=== PATIENT | female | born 1950 | race Caucasian/White ===

== ENCOUNTER → 2016-05-02 | Outpatient (CLI) | payer BC ==
[~2016-05-02] MED LIST: ATOR-26 PO; CHOL2000 PO; DILT-119 PO; ESTR0.3T PO; HYDR2TAB48 PO; IBUP-1050 PO; LOSA100T65 PO
[2016-05-02 12:39] LABS: URINE APPEARANCE CLOUDY (CLEAR); URINE BILIRUBIN NEG (NEG); URINE COLOR YELLOW; URINE EPITHELIAL CELL AUTO >30 /lpf (0-5); URINE NITRITE NEG (NEG); UROBILINOGEN NEG (NEG); ZZUR CULT IF INDIC CLEAN CATCH YES
[2016-05-02 12:42] LABS: MANUAL MICROSCOPIC REQUIRED? NO; REVIEW REQ? NO
[2016-05-02 12:51] LABS: CHOLESTEROL/HDL RATIO 3.5
== END | disposition home or self-care (01) ==
LOC: C.LABBFT 08:15
PROVIDERS: ATTEND Internal Medicine
DX: R30.0 Dysuria (principal); E78.5 Hyperlipidemia, unspecified

== ENCOUNTER → 2016-05-06 | Outpatient (CLI) | payer BC | END | disposition home or self-care (01) | LOC: C.LABBFT 09:28 | PROVIDERS: ATTEND Internal Medicine | DX: N39.0 Urinary tract infection, site not specified (principal) ==

== ENCOUNTER → 2016-05-19 | Outpatient (CLI) | payer BC ==
--- NOTE | 2016-05-19 16:38 | MAMMOGRAPHY REPORT ---
BILATERAL DIGITAL SCREENING MAMMOGRAM WITH CAD: 05/19/2016 CLINICAL HISTORY: Routine screening. Patient has no complaints. TECHNIQUE: Bilateral CC, MLO and repeat left cc views were obtained. Current study was also evaluat ed with a Computer Aided Detection (CAD) system. COMPARISON: Comparison is made to exams dated: 05/16/2015 mammogram, 05/08/2014 mammogram, 05/05/2013 mammogram, 05/04/2012 mammogram, 05/01/2011 mammogram, and 04/17/2010 mammogram - [facility]. BREAST COMPOSITION: There are scattered areas of fibroglandular density in both breasts. FINDINGS: There are scattered stable benign-appearing calcifications in both breasts. No suspiciou s mass, architectural distortion or cluster of microcalcifications is seen. IMPRESSION: ACR BI-RADS CATEGORY 2: BENIGN There is no mammographic evidence of malignancy. A 1 year screening mammogram is recommended. The p atient will receive written notification of the results. Approximately 10% of breast cancers are not detected with mammography. A negative mammographic repor t should not delay biopsy if a clinically suggestive mass is present. Eliza Garcias M.D. ay/:05/19/2016 15:55:36 Poultry Packer: Rasheeda PLATT(Artur)(Thai), [facility] letter sent: Normal 1/2 BI-RADS Code: ACR BI-RADS Category 2: Benign
== END | disposition home or self-care (01) ==
LOC: C.MAMM 09:14
PROVIDERS: ATTEND Obstetrics & Gynecology
DX: Z12.31 Encounter for screening mammogram for malignant neoplasm of breast (principal)

== ENCOUNTER → 2016-11-14 | Outpatient (CLI) | payer BC ==
[2016-11-14 12:47] LABS: BASO % 0.2 %; BASO ABS # 0.01 K/uL (0-0.2); COMPLETE YES; EOS % 2.1 %; HEMATOCRIT 45.4 % (37-47); IG% 0.2 %; LYMPH % 30.8 %; LYMPH ABS # 1.89 K/uL (1.2-3.4); MEAN CELL VOLUME 92.8 fL (80-100); MEAN CORPUSCULAR HEMOGLOBIN 30.9 pg (25-34); MEAN CORPUSCULAR HGB CONC 33.3 g/dl (32-36); MEAN PLATELET VOLUME 10.5 fL (7.4-10.4); MONO % 10.9 %; NEUT % 55.8 %; PLATELET COUNT 221 K/uL (130-400); RED BLOOD COUNT 4.89 M/uL (4.2-5.4); WHITE BLOOD COUNT 6.14 K/uL (4.8-10.8)
[2016-11-14 12:59] LABS: BLOOD UREA NITROGEN 13 mg/dl (7-18); BUN/CREATININE RATIO 12.9 (10-20); CARBON DIOXIDE 24 mmol/L (21-32); CHLORIDE 110 mmol/L (98-107); GLUCOSE 96 mg/dl (70-99); POTASSIUM 4.1 mmol/L (3.5-5.1); SODIUM 141 mmol/L (136-145)
== END | disposition home or self-care (01) ==
LOC: C.LABBFT 08:03
PROVIDERS: ATTEND Internal Medicine
DX: E55.9 Vitamin D deficiency, unspecified (principal); I10 Essential (primary) hypertension

== ENCOUNTER → 2017-05-26 | Outpatient (CLI) | payer OTHER ==
[2017-05-26 12:56] LABS: ALT/SGPT 77 U/L (12-78); BLOOD UREA NITROGEN 18 mg/dl (7-18); CALCIUM 8.9 mg/dl (8.5-10.1); CARBON DIOXIDE 26 mmol/L (21-32); CHOLESTEROL 162 mg/dl (0-200); CREATININE 1.14 mg/dl (0.60-1.20); GLUCOSE 95 mg/dl (70-99); POTASSIUM 3.6 mmol/L (3.5-5.1); SODIUM 140 mmol/L (136-145)
[2017-05-26 13:07] LABS: ALKALINE PHOSPHATASE 193 U/L (45-117); AST/SGOT 28 U/L (15-37); LDL CHOLESTEROL CALCULATED 74 mg/dl; TOTAL PROTEIN 7.1 gm/dl (6.4-8.2)
== END | disposition home or self-care (01) ==
LOC: C.LABBFT 08:07
PROVIDERS: ATTEND Internal Medicine
DX: I10 Essential (primary) hypertension (principal); E78.5 Hyperlipidemia, unspecified; E55.9 Vitamin D deficiency, unspecified

== ENCOUNTER → 2017-06-30 | Outpatient (CLI) | payer OTHER | END | disposition home or self-care (01) | LOC: C.MAMM 14:15 | PROVIDERS: ATTEND Internal Medicine | DX: E55.9 Vitamin D deficiency, unspecified (principal); M85.852 Other specified disorders of bone density and structure, left thigh ==

== ENCOUNTER → 2017-07-01 | Outpatient (CLI) | payer OTHER ==
--- NOTE | 2017-07-01 15:25 | MAMMOGRAPHY REPORT ---
BILATERAL DIGITAL SCREENING MAMMOGRAM TOMOSYNTHESIS WITH CAD: 07/01/2017 CLINICAL HISTORY: Routine screening. Patient has no complaints. TECHNIQUE: Breast tomosynthesis in addition to standard 2D mammography was performed. Current study was also evaluated with a Computer Aided Detection (CAD) system. COMPARISON: Comparison is made to exams dated: 05/19/2016 mammogram, 05/16/2015 mammogram, 05/08/2014 ma mmogram, 05/05/2013 mammogram, 05/04/2012 mammogram, and 05/01/2011 mammogram - [facility]. BREAST COMPOSITION: There are scattered areas of fibroglandular density in both breasts. FINDINGS: The parenchymal pattern is unchanged. No developing mass, architectural distortion or clus ter of suspicious microcalcifications is seen. There are benign calcifications in both breasts. IMPRESSION: ACR BI-RADS CATEGORY 2: BENIGN There is no mammographic evidence of malignancy. A 1 year screening mammogram is recommended. The pa tient will receive written notification of the results. Approximately 10% of breast cancers are not detected with mammography. A negative mammographic report should not delay biopsy if a clinically suggestive mass is present. Eliza Garcias M.D. ay/:07/01/2017 12:10:56 Diplomatic Officer: Floridalma PLATT(Artur)(M), [facility] letter sent: Normal 1/2 BI-RADS Code: ACR BI-RADS Category 2: Benign
== END | disposition home or self-care (01) ==
LOC: C.MAMM 10:37
PROVIDERS: ATTEND Obstetrics & Gynecology
DX: Z12.31 Encounter for screening mammogram for malignant neoplasm of breast (principal)

== ENCOUNTER 2018-05-22 12:36 | Inpatient (IN) ==
[2018-05-22] MEDS ORDERED: NITROGLYCERIN SL 0.4 MG/TAB TAB SL PRN (13:02)
[2018-05-22 13:20] LABS: Basophils # (auto) 0.01 K/uL (0-0.2); Basophils % (auto) 0.2 %; Eosinophils # (auto) 0.04 K/uL (0-0.5); Eosinophils % (auto) 0.7 %; Hematocrit (blood only) 43.2 % (37-47); Hemoglobin 14.8 g/dL (12.0-16.0); Immature Granulocytes # (auto) 0.01 K/uL (0.00-0.02); Immature Granulocytes % (auto) 0.2 %; Lymphocytes # (auto) 1.86 K/uL (1.2-3.4); Lymphocytes % (auto) 31.6 %; Mean Corpuscular Hgb Conc 34.3 g/dL (32-36); Mean Corpuscular Volume 90.8 fL (80-100); Mean Platelet Volume 10.5 fL (7.4-10.4); Monocytes # (auto) 0.62 K/uL (0.11-0.59); Monocytes % (auto) 10.5 %; Neutrophils # (auto) 3.34 K/uL (1.4-6.5); Neutrophils % (auto) 56.8 %; Platelet Count 210 K/uL (130-400); RDW Coefficient of Variation 11.9 % (11.5-14.5); RDW Standard Deviation 40.1 fL (36.4-46.3); Red Blood Count 4.76 M/uL (4.2-5.4); White Blood Count 5.88 K/uL (4.8-10.8)
--- NOTE | 2018-05-22 13:26 | XRay Report ---
XR chest 1V portable HISTORY: 67 years-old Female Chest Pain acute atypical chest pain COMPARISON: Chest radiographs 01/27/2016 TECHNIQUE: Portable AP view of the chest. FINDINGS: Cardiac silhouette is upper limits of normal in size. No pneumothorax, large pleural effusion or over t pulmonary edema. Subsegmental left basilar opacities are noted with blunting of the left costophren ic angle. Degenerative changes of the shoulders and spine. IMPRESSION: 1. Subsegmental left basilar opacities suggest atelectasis or pneumonitis. 2. Possible trace left pleural effusion. The above report was generated using voice recognition software. It may contain grammatical, syntax o r spelling errors. Electronically signed by: Jose Tillman M.D. 05/22/2018 1:24 PM
[2018-05-22 13:36] LABS: Alanine Aminotransferase 91 U/L (12-78); Albumin Level 3.9 gm/dl (3.4-5.0); Aspartate Aminotransferase 117 U/L (15-37); BUN Creatinine Ratio 21.5 (10-20); Blood Urea Nitrogen 25 mg/dl (7-18); Calcium 9.1 mg/dl (8.5-10.1); Carbon Dioxide 26 mmol/L (21-32); Chloride 106 mmol/L (98-107); Est GFR (African American) 57.2; Est GFR (Non-African American) 49.4; Glucose 136 mg/dl (70-99); Potassium 3.7 mmol/L (3.5-5.1); Sodium 139 mmol/L (136-145)
[2018-05-22 13:41] LABS: Albumin Globulin Ratio 1.2 (0.9-2); Alkaline Phosphatase 199 U/L (45-117); Bilirubin,Total 0.6 mg/dl (0.2-1); Globulin 3.3 gm/dl (2.5-4.0); Total Protein 7.2 gm/dl (6.4-8.2); Troponin I < 0.015 ng/ml (0-0.045)
[2018-05-22] MEDS ORDERED: HYDROmorphone INJ 0.5 MG/0.5 ML SYR IV STA ×2 (14:27→17:23)
[2018-05-22] MEDS ORDERED: ONDANSETRON INJ 2 MG/ML 2 ML VIAL IV STA ×2 (14:27→17:23)
--- NOTE | 2018-05-22 15:19 | Ultrasound Report ---
US abdomen limited HISTORY: 67 years-old Female RUQ/epigastric pain acute right upper quadrant and epigastric abdominal pain COMPARISON: None available TECHNIQUE: Multiple real-time sonographic images of the abdominal right upper quadrant were obtained assessing grayscale appearance and color flow FINDINGS: Study is limited secondary to patient body habitus and obscuring bowel gas. Pancreas is not well seen . Mildly increased echogenicity of the liver is noted without intrahepatic biliary ductal dilation. Kaitlynn or cholecystectomy. Common bile duct measures 9 mm, likely postsurgical. Imaged right kidney demonstrates multiple benign-appearing cysts, largest which measures up to 2.2 cm . Cortical thinning about the right kidney suggested. IMPRESSION: 1. Limited study secondary to patient body habitus and obscuring bowel gas. 2. Prior cholecystectomy. 3. Possible mild hepatic steatosis. The above report was generated using voice recognition software. It may contain grammatical, syntax o r spelling errors. Electronically signed by: Jose Tillman M.D. 05/22/2018 3:17 PM
--- NOTE | 2018-05-22 15:29 | Emergency Department Note ---
Entered by April Borjas acting as a scribe for Genevieve Szymanski MD History of Present Illness General Chief complaint: Shortness of Breath/Dyspnea Stated complaint: SOB Time Seen by Provider: 05/22/18 12:56 Source: patient History of Present Illness Onset (ago): day(s) (this morning) Location: chest Radiation: other (left shoulder (resolved)) Pain Consistency: + constant Maximum Pain Intensity: 9 Current Pain Intensity: 8 Relieved By: not by medication (Tums or Pepto Bismol) Exacerbated By: + other (breathing in deeply) Associated symptoms: + denies other symptoms (bowel changes) The patient is a 67 year old female who presents to the Emergency Room with complaints of an episode of chest pain around her sternum that started this morning. The patient reports she was bent over cleaning and when she stood up she starting having chest pain. She states she thought it was just gas pain and took Tums/Pepto Bismol but noticed no relief of her symptoms. She rates her chest pain as 8/10 and notes that it is unchanged since its onset. She notes that her left shoulder started hurting but that pain is mostly resolved. She states she ate two eggs and toast for breakfast but has not eaten any lunch. She denies any bowel movement changes. She denies any history of heart problems but notes she is currently taking medication for her cholesterol and HCTZ for leg swelling. The patient reports she has had her gallbladder removed in the past but denies any history of stomach or pancreas issues. She states she is a never smoker. Home Medications Home Medications Medication Instructions Recorded Confirmed Type diltiazem HCl [Cartia XT] 360 mg PO DAILY 05/22/18 05/22/18 History hydrochlorothiazide 25 mg PO DAILY 05/22/18 05/22/18 History losartan 100 mg PO DAILY 05/22/18 05/22/18 History rosuvastatin 20 mg PO HS 05/22/18 05/22/18 History Allergies Allergy/AdvReac Type Severity Reaction Status Date / Time codeine AdvReac Unknown GI UPSET Verified 05/22/18 13:32 oxycodone AdvReac Unknown SICK Verified 05/22/18 13:32 Past Med/Surg History Medical History Vitamin D deficiency (Chronic) Osteopenia (Chronic) Irritable bowel syndrome (Chronic) Hypertension (Chronic) Hyperlipidemia (Chronic) History of shingles (Chronic) Eczema (Chronic) Anxiety (Chronic) Depression (Chronic) Benign paroxysmal positional vertigo (Resolved) Asthma (Chronic) Surgical History History of hysterectomy (Chronic) History of cholecystectomy (Chronic) Family History Other Family history non-contributory Social History Preferred Language: Icelandic marital status: Current Living Situation: Spouse current occupational status: retired Feels Safe at Home: Yes Smoking Status: Never smoker Hx Alcohol Use: No Hx Substance Use: No Review of Systems See HPI for pertinent positives & negatives. and A total of 10 systems reviewed and were otherwise negative Physical Exam Vital Signs Vital Signs - 24 hr 05/22/18 12:45 05/22/18 13:11 05/22/18 13:12 Temperature 36.5 C Temperature Source Oral Sepsis Recent Fever Within 48 Hours No Sepsis Action Taken by Nursing No Action Required Pulse Rate 98 H 99 H Pulse Rate [Apical] Pulse Rhythm Regular Regular Pulse Rhythm [Apical] Pulse Strength Normal Respiratory Rate 36 H 19 Respiratory Effort / Characteristics Non-Labored Spontaneous Respiratory Depth Shallow Normal Respiratory Pattern Tachypnea Regular Blood Pressure [Left Arm] Blood Pressure Mean [Left Arm] Blood Pressure Position Sitting Pulse Oximetry 97 97 93 Oxygen Delivery Method Room Air Room Air Room Air 05/22/18 14:09 Temperature Temperature Source Sepsis Recent Fever Within 48 Hours Sepsis Action Taken by Nursing Pulse Rate Pulse Rate [Apical] 88 Pulse Rhythm Pulse Rhythm [Apical] Regular Pulse Strength Respiratory Rate 17 Respiratory Effort / Characteristics Non-Labored Spontaneous Respiratory Depth Normal Respiratory Pattern Regular Blood Pressure [Left Arm] 148/89 H Blood Pressure Mean [Left Arm] 108 Blood Pressure Position Pulse Oximetry 98 Oxygen Delivery Method Room Air Vital signs reviewed. General: Well-appearing female, obese, in no significant distress. HEENT: No scleral icterus, PERRLA, neck supple. Atraumatic. Cardiovascular: Regular rate and rhythm, no extra sounds. Pulmonary: Clear to auscultation bilaterally, normal work of breathing. Abdomen: Soft, nondistended, positive bowel sounds, tenderness to palpation to epigastric region. No rebound or guarding. Musculoskeletal: Atraumatic, minimal swelling of the bilateral lower extremities. Neurologic: Patient awake alert and oriented x 3 Skin: Warm, dry, no rash Course 1301: The patient was evaluated in room C01B, and a complete history and physical examination were performed. 1425: I updated the patient on her current lab and imaging results. Administered Medications Nitroglycerin (Nitrostat) 0.4 mg SL UD PRN PRN Reason: Chest Pain Stop: 06/21/18 13:01 Last Admin: 05/22/18 13:08 Dose: 0.4 mg Documented by: [id number] Medical Decision Making Differential Diagnosis Differential diagnosis: Etiologies such as cardiac ischemia, aortic dissection, pulmonary embolism, pneumonia, pneumothorax, musculoskeletal, infections, pericarditis, myocarditis, esophageal rupture, gastrointestinal, as well as others were entertained. Medical Records Attestation: I reviewed the patient's medical records. Home Medications Current Medication List: was personally reviewed by me Laboratory Data Attestation: I reviewed the patient's lab results. Result diagrams: 05/22/18 13:03 05/22/18 13:03 Lab Results 05/22/18 05/22/18 Range/Units 13:03 13:03 WBC 5.88 (4.8-10.8) K/uL RBC 4.76 (4.2-5.4) M/uL Hgb 14.8 (12.0-16.0) g/dL Hct 43.2 (37-47) % MCV 90.8 (80-100) fL MCH 31.1 (25-34) pg MCHC 34.3 (32-36) g/dL RDW Std Deviation 40.1 (36.4-46.3) fL RDW Coeff of David 11.9 (11.5-14.5) % Plt Count 210 (130-400) K/uL MPV 10.5 H (7.4-10.4) fL Immature Gran % (Auto) 0.2 % Neut % (Auto) 56.8 % Lymph % (Auto) 31.6 % [place] % (Auto) 10.5 % Eos % (Auto) 0.7 % Baso % (Auto) 0.2 % Immature Gran # (Auto) 0.01 (0.00-0.02) K/uL Neut # (Auto) 3.34 (1.4-6.5) K/uL Lymph # (Auto) 1.86 (1.2-3.4) K/uL [place] # (Auto) 0.62 H (0.11-0.59) K/uL Eos # (Auto) 0.04 (0-0.5) K/uL Baso # (Auto) 0.01 (0-0.2) K/uL Sodium 139 (136-145) mmol/L Potassium 3.7 (3.5-5.1) mmol/L Chloride 106 (98-107) mmol/L Carbon Dioxide 26 (21-32) mmol/L Anion Gap 7.0 (3-11) BUN 25 H (7-18) mg/dl Creatinine 1.16 (0.6-1.2) mg/dl Est Cr Clr Drug Dosing 49.0 ml/min Est GFR ( Amer) 57.2 Est GFR (Non-Af Amer) 49.4 BUN/Creatinine Ratio 21.5 H (10-20) Glucose 136 H (70-99) mg/dl Calcium 9.1 (8.5-10.1) mg/dl Total Bilirubin 0.6 (0.2-1) mg/dl AST 117 H (15-37) U/L ALT 91 H (12-78) U/L Alkaline Phosphatase 199 H (45-117) U/L Troponin I < 0.015 (0-0.045) ng/ml Total Protein 7.2 (6.4-8.2) gm/dl Albumin 3.9 (3.4-5.0) gm/dl Globulin 3.3 (2.5-4.0) gm/dl Albumin/Globulin Ratio 1.2 (0.9-2) Lipase 194 (73-393) U/L Imaging Data Radiologist's Impression: Radiology results as stated below per my review and the radiologist's interpretation: XR chest 1V portable HISTORY: 67 years-old Female Chest Pain acute atypical chest pain COMPARISON: Chest radiographs 01/27/2016 TECHNIQUE: Portable AP view of the chest. FINDINGS: Cardiac silhouette is upper limits of normal in size. No pneumothorax, large pleural effusion or overt pulmonary edema. Subsegmental left basilar opacities are noted with blunting of the left costophrenic angle. Degenerative changes of the shoulders and spine. IMPRESSION: 1. Subsegmental left basilar opacities suggest atelectasis or pneumonitis. 2. Possible trace left pleural effusion. The above report was generated using voice recognition software. It may contain grammatical, syntax or spelling errors. Electronically signed by: Jose Tillman M.D. 05/22/2018 1:24 PM ECG Data Attestation: I personally reviewed and interpreted this ECG as follows: Indication: chest pain Rate (beats per minute): 97 Rhythm: normal sinus Findings: + other (left ventricular hypertrophy, t-wave abnormality in lateral leads, QTC 474); no PAC, no PVC, no ST depression, no ST elevation, no acute ischemic change and no ectopy Blood Pressure Blood Pressure Findings: Elevated blood pressure Blood Pressure Disposition: elevated BP felt to be situational MDM Narrative This patient was evaluated and appeared to be in no significant distress. IV access was obtained and laboratory work was drawn. EKG was obtained and reveals no evidence of acute ischemic change. Chest x-ray reveals a trace left pleural effusion and atelectasis. Laboratory work is reassuring with the exception of some slightly elevated liver enzymes. Lipase and bilirubin are within normal limits. Ultrasound of the right upper quadrant was performed and is technically limited however reveals no obvious ductal obstruction. Given the patient's discomfort and limited ultrasound, CT scan of the abdomen pelvis was ordered. The case was discussed with Dr. Jett at the change of shift, pending CT results. Patient's family was updated on the plan and agree. Impression & Plan Epigastric abdominal pain Discharge Plan Visit Data Chief Complaint: Shortness of Breath/Dyspnea Stated Complaint: SOB ED Provider: Cesario Jett Discharge Problem: Epigastric abdominal pain Forms Stand Alone Forms: My [facility] Prescriptions Prescriptions: No Action diltiazem HCl [Cartia XT] 180 mg capsule,extended release 24hr 360 mg PO DAILY RF: 0 hydrochlorothiazide 25 mg tablet 25 mg PO DAILY RF: 0 losartan 100 mg tablet 100 mg PO DAILY RF: 0 rosuvastatin 20 mg tablet 20 mg PO HS RF: 0 The scribe's documentation has been prepared under my direction and personally reviewed by me in its entirety. I confirm that the note above accurately reflects all work, treatment, procedures, and medical decision making performed by me.
[2018-05-22] MEDS ORDERED: IOVERSOL 100ml IV PRN (15:42)
--- NOTE | 2018-05-22 16:10 | CT Scan Report ---
ABDOMEN AND PELVIS CT WITH IV CONTRAST CT DOSE: 1156.28 mGy.cm HISTORY: Acute epigastric abdominal pain with elevated LFTs epigastric pain, elevated liver enzymes TECHNIQUE: Multiaxial CT images of the abdomen and pelvis were performed following the use of intrave nous contrast. A dose lowering technique was utilized adhering to the principles of ALARA. COMPARISON STUDY: Right upper quadrant abdominal ultrasound of same day. FINDINGS: Mild dependent subsegmental bibasilar atelectasis. No pneumatosis or pneumoperitoneum. Coronary arter ial calcifications are noted. Prior cholecystectomy with pneumobilia suggestive of prior sphincterotomy. Mild dilation of the commo n bile duct is likely postsurgical. No obstructing biliary stones or lesions identified. No evidence of cirrhosis. Spleen, pancreas and adrenal glands appear unremarkable. Mild nonspecific bilateral per inephric stranding. Multiple bilateral renal cysts are noted measuring up to 6.8 cm on the left. Ther e are no renal or ureteral calculi identified. Ureters are unremarkable. Partial distention of the bl adder with mild wall thickening. Prior hysterectomy. No adnexal mass lesions. Aorta and IVC are unrem arkable. No adenopathy. There is no small bowel obstruction or focal bowel wall thickening. No ascites or mesenteric inflamma tion. Mild colonic diverticulosis without acute diverticulitis. Terminal ileum and appendix appear no rmal. Soft tissues are within normal limits. Bones appear to be intact. Multilevel spondylitic spurri ng with facet arthrosis. Perineural root sleeve cysts with bony remodeling changes noted about the sa kelsea measuring up to 4.3 cm. IMPRESSION: 1. Prior cholecystectomy. Mild dilation of the common bile duct is likely postsurgical. Mild associat ed pneumobilia suggests prior sphincterotomy. 2. No bowel obstruction or focal bowel wall thickening. 3. Mild colonic diverticulosis without acute diverticulitis. 4. Additional findings as above. Electronically signed by: Jose Tillman M.D. 05/22/2018 4:09 PM
--- NOTE | 2018-05-22 19:07 | Emergency Department Note ---
ED Visit Note The patient was taken in signout from Dr. Genevieve Szymanski at the change of shift. Please see that note for details. The patient was pending CT imaging. I did reevaluate the patient. The patient had ductal dilatation noted on CT imaging. No evidence of bowel pathology. On examination she was tender in the right upper quadrant. Her LFTs show some concern for an obstructive pattern. The patient notes that the pain was similar to when she had acute cholecystitis in the past and subsequent cholecystectomy. The patient did receive another dose of Zofran and Dilaudid. I did discuss the case with Dr. Dc of gastroenterology. He recommended MRCP and based upon those results that she may need possible ERCP. I did contact the hospitalist service and discussed the case with Dr. Eduardo. He evaluated the patient in the ER and brought her into the hospital for further management. .
[2018-05-22] MEDS ORDERED: ALUMINUM/MAGNESIUM SUSP 30 ML UDC PO PRN (19:39)
[2018-05-22] MEDS ORDERED: HydrALAZINE HCL 20 MG/ML VIAL IV PRN (19:39)
[2018-05-22] MEDS ORDERED: ONDANSETRON INJ 2 MG/ML 2 ML VIAL IV PRN (19:39)
[2018-05-22] MEDS ORDERED: MoRPHine SULFATE 4 MG/ML 1 ML CARP\\VIAL IV PRN (19:39)
[2018-05-22] MEDS ORDERED: MoRPHine SULFATE 4 MG/ML 1 ML CARP\\VIAL ONE (19:44)
--- NOTE | 2018-05-22 21:00 | History & Physical Report ---
Date of Service May 22, 2018 Assessment & Plan (1) Epigastric abdominal pain: Unclear etiology. Pain is similar to her pain prior to her cholecystectomy in 1998. At that time, she had cholecystectomy, bile duct cholangiography, and a sphincterectomy with GI afterward. This, plus the LFT elevation not being in an obstructive pattern make choledocolithasis seem quite unlikely. Also considering gastritis, ulcer, other gastric etiology, or esophagitis as the pain is mostly epigastric and LUQ. She is most tender in the epigastric region and LUQ. ED providers also worried about cardiac nature, but it is a very atypical story, her troponins are all negative, and her EKG is non-ischemic. Would not do inpatient stress testing unless all other etiologies are exhuasted, and patient is still experiencing pain. - PPI IV BID - MRCP - GI consult - NPO @ midnight for possible scope - Pain control (2) Elevated liver function tests: AST/ALT elevated to 117/91 from normal <1 month ago. Unclear if her statin is a new prescription or not (forgot to ask). LFTs do not seem to be in an obstructive pattern, but choledocolithiasis is a possibility. - Trend LFTs - Hold statin - Plan as above (3) Hypertension: BP initially elevated in the ED to 190/90 in the setting of significant pain. - Now lower with pain control - Continue home meds - Work on pain control - Hydralazine PRN (4) Hyperlipidemia: - Holding statin as above (5) DVT prophylaxis: SCDs - Low risk per calculator History of Present Illness Primary Care Provider: Macario Little MD 67yo F w/ hx of cholecystectomy and HTN who presents with epigastric and LUQ pain. Patient reports the pain came on suddenly at approx. noon. She bent over, and when she stood up, she experienced a sharp, 10/10 epigastric pain that radiated up to her left jaw and down to her umbilicus. The pain up to the neck faded quickly, but she reports the pain is still in the epigastric area. She attempted to take Tums and Maalox without relief and came to the ED. She also re ports shortness of breath that accompanied the pain along with wheezing. She denies any fevers, chills, diaphoresis, nausea, vomiting, cough, diarrhea, constipation, or dysuria. She reports this pain is very similar to her prior gallbladder pain when she had a cholecystectomy with Dr. Funes. Allergies Allergy/AdvReac Type Severity Reaction Status Date / Time codeine AdvReac Unknown GI UPSET Verified 05/22/18 13:32 oxycodone AdvReac Unknown SICK Verified 05/22/18 13:32 Home Medications Home Medications Medication Instructions Recorded Confirmed Type diltiazem HCl [Cartia XT] 360 mg PO DAILY 05/22/18 05/22/18 History hydrochlorothiazide 25 mg PO DAILY 05/22/18 05/22/18 History losartan 100 mg PO DAILY 05/22/18 05/22/18 History rosuvastatin 20 mg PO HS 05/22/18 05/22/18 History Past Med/Surg History Medical History Vitamin D deficiency (Chronic) Osteopenia (Chronic) Irritable bowel syndrome (Chronic) Hypertension (Chronic) Hyperlipidemia (Chronic) History of shingles (Chronic) Eczema (Chronic) Anxiety (Chronic) Depression (Chronic) Benign paroxysmal positional vertigo (Resolved) Asthma (Chronic) Surgical History History of hysterectomy (Chronic) History of cholecystectomy (Chronic) Family History Other Family history non-contributory Social History Preferred Language: Vietnamese Communication Ability: Effective Mattress Finisher Required: No Beliefs That Will Affect Care: Voodoo marital status: Current Living Situation: Spouse current occupational status: retired Other Information That Helps Us Care for You: No Feels Safe at Home: Yes Safety Concerns: Feels Safe At This Time Smoking Status: Never smoker Hx Alcohol Use: No Hx Substance Use: No Review of Systems Constitutional: no fever, no chills and no sweats Eyes: no diplopia Ear, Nose, Mouth, Throat: no ear trauma, no nasal discharge and no dental pain Respiratory: no cough, no chest congestion and no dyspnea Cardiovascular: no chest pain, no dyspnea on exertion, no palpitations and no syncope Gastrointestinal: + abdominal pain; no belching, no nausea, no vomiting, no hematemesis, no constipation, no diarrhea/loose stools, no blood in stools and no melena Musculoskeletal: no back pain, no joint pain and no muscle weakness Integumentary: no rash, no skin ulcer and no erythema Neurologic: no generalized weakness, no loss of sensation, no numbness and no paresthesia Psychiatric: no depression and no anxiety Endocrine: no fatigue, no polydipsia and no polyphagia Physical Exam Vital Signs (Past 24 Hours): Last Vital Signs Temp 36.4 C L 05/22/18 16:30 Pulse 102 H 05/22/18 18:51 Resp 18 05/22/18 18:51 BP 154/80 H 05/22/18 18:51 Pulse Ox 94 05/22/18 18:51 Constitutional: WD/WN, vitals as above Eyes: EOM intact bilaterally; no conjunctival abnormality ENMT: external ear and nose normal, oropharynx normal Neck: trachea midline, no thyromegaly normal visual inspection Respiratory: normal respiratory effort, lungs clear to auscultation no respiratory distress Cardiovascular: RRR, no murmur, no edema Gastrointestinal (Abdomen): Inspection/Auscultation: abdomen normal to inspection; abdomen not distended Percussion/Palpation: + abdomen tender (Pr edominantly epigastric region) and abdomen soft; no guarding and abdomen not rigid Musculoskeletal: no cyanosis or clubbing, extremities motor strength 5/5 Skin: no rashes, warm and dry Neurologic: moves all extremities and awake Psychiatric: Orientation: alert, oriented to person and cooperative
--- NOTE | 2018-05-22 21:36 | Magnetic Resonance Report ---
MR MRCP HISTORY: 67 years-old Female Concern for retained stone acute epigastric abdominal pain with prior c holecystectomy. COMPARISON: CT abdomen and pelvis and right upper quadrant abdominal ultrasound studies of same day TECHNIQUE: MRCP without IV contrast was obtained according to institutional protocol. FINDINGS: Study is mildly motion degraded. Renal cysts redemonstrated. Lower chest and solid abdominal organs a ppear unremarkable. Prior cholecystectomy. Pneumobilia is better appreciated on the study of same day . Common bile duct is mildly dilated at 8 mm. Mild intrahepatic biliary ductal dilation. There is sug gestion of a tiny filling defect noted about the distal common bile duct measuring approximately 3 mm . The distal common bile duct is not well visualized. Pancreatic duct appears normal. No evidence of pancreatic divisum. Soft tissues and bony structures appear unremarkable. IMPRESSION: 1. Motion degraded exam. 2. Cholecystectomy with mild intrahepatic and extrahepatic biliary ductal dilation. Pneumobilia is be tter appreciated on CT study of same day. 3. Findings are suspicious for choledocholithiasis about the distal common bile duct. The above report was generated using voice recognition software. It may contain grammatical, syntax o r spelling errors. Electronically signed by: Jose Tillman M.D. 05/22/2018 9:34 PM
[2018-05-22] MEDS: PANTOprazole 40 MG in SYRINGE 0 ML IV SCH (21:42)
[2018-05-23] MEDS: ACETAMINOPHEN 325 MG TAB PO PRN ×2 (04:44→20:28)
[2018-05-23] MEDS ORDERED: TRAMADOL HCL 50 MG TABLET PO PRN (05:37)
[2018-05-23 07:20] LABS: Hematocrit (blood only) 44.4 % (37-47); Hemoglobin 15.1 g/dL (12.0-16.0); Mean Corpuscular Volume 91.2 fL (80-100); Mean Platelet Volume 10.2 fL (7.4-10.4); Platelet Count 229 K/uL (130-400); RDW Coefficient of Variation 12.3 % (11.5-14.5); RDW Standard Deviation 41.1 fL (36.4-46.3); Red Blood Count 4.87 M/uL (4.2-5.4); White Blood Count 11.48 K/uL (4.8-10.8)
[2018-05-23 07:37] LABS: Est GFR (African American) 50.3; Est GFR (Non-African American) 43.4
[2018-05-23 07:38] LABS: Albumin Level 3.9 gm/dl (3.4-5.0); BUN Creatinine Ratio 15.5 (10-20); Calcium 9.2 mg/dl (8.5-10.1); Magnesium 2.2 mg/dl (1.8-2.4)
[2018-05-23 07:40] LABS: Albumin Globulin Ratio 1.1 (0.9-2); Bilirubin,Total 0.8 mg/dl (0.2-1); Globulin 3.4 gm/dl (2.5-4.0); Total Protein 7.3 gm/dl (6.4-8.2)
[2018-05-23] MEDS ORDERED: INDOMETHACIN 50 MG SUPP PR SCH (08:00)
--- NOTE | 2018-05-23 08:14 | History & Physical Report ---
Date of Service May 23, 2018 Assessment & Plan (1) Choledocholithiasis: Patient presented with right upper quadrant discomfort and elevation of her liver associated enzymes. Imaging seems to indicate a stone within the distal common bile duct. Given this we will proceed with ERCP today for removal of gallstone and perhaps biliary stenting if necessary. The patient and I have discussed the risks of the procedure to include bleeding, infection, perforation, pancreatitis and failed cannulation. History of Present Illness Chief Complaint: Abdominal pain Primary Care Provider: Macario Little MD The patient presented to the emergency room yesterday for evaluation of sudden onset abdominal discomfort. The patient is described as right-sided and unremitting. She had initial labs done which showed elevation of her AST and ALT. Follow-up imaging was inconclusive however she did have an MRCP last night which shows evidence of a stone within her distal common bile duct. The patient reports having a prior cholecystectomy over 20 years ago. Her other abdominal surgeries include a hysterectomy. Allergies Allergy/AdvReac Type Severity Reaction Status Date / Time codeine AdvReac Unknown GI UPSET Verified 05/22/18 13:32 oxycodone AdvReac Unknown SICK Verified 05/22/18 13:32 Home Medications Home Medications Medication Instructions Recorded Confirmed Type diltiazem HCl [Cartia XT] 360 mg PO DAILY 05/22/18 05/22/18 History hydrochlorothiazide 25 mg PO DAILY 05/22/18 05/22/18 History losartan 100 mg PO DAILY 05/22/18 05/22/18 History rosuvastatin 20 mg PO HS 05/22/18 05/22/18 History Past Med/Surg History Medical History Vitamin D deficiency (Chronic) Osteopenia (Chronic) Irritable bowel syndrome (Chronic) Hypertension (Chronic) Hyperlipidemia (Chronic) History of shingles (Chronic) Eczema (Chronic) Anxiety (Chronic) Depression (Chronic) Benign paroxysmal positional vertigo (Resolved) Asthma (Chronic) Surgical History History of hysterectomy (Chronic) History of cholecystectomy (Chronic) Family History Other Family history non-contributory Social History Preferred Language: Chinese Communication Ability: Effective Artificial Pearl Maker Required: No Beliefs That Will Affect Care: Sikhism marital status: Current Living Situation: Spouse current occupational status: retired Other Information That Helps Us Care for You: No Feels Safe at Home: Yes Safety Concerns: Feels Safe At This Time Smoking Status: Never smoker Hx Alcohol Use: No Hx Substance Use: No Review of Systems Constitutional: no sweats and no malaise Eyes: no diplopia Ear, Nose, Mouth, Throat: no nasal discharge and no foul smell Respiratory: no change in sputum and no hemoptysis Cardiovascular: no chest pain with activity and no dyspnea at rest Gastrointestinal: + abdominal pain, + bloating and + nausea; no early satiety and no hematemesis Genitourinary (Female): no dysuria Musculoskeletal: + back pain; no neck pain Integumentary: no rash Neurologic: no falls and no paralysis Psychiatric: + change in appetite; no hopelessness and no suicidal ideation Endocrine: no fatigue and no polydipsia Hematologic / Lymphatic: no easy bleeding and no coagulopathy Physical Exam Vital Signs (Past 24 Hours): Last Vital Signs Temp 37.0 C 05/23/18 07:15 Pulse 108 H 05/23/18 07:15 Resp 18 05/23/18 07:15 BP 123/76 05/23/18 07:15 Pulse Ox 92 05/23/18 07:15 Constitutional: well developed and well nourished; not ill appearing Eyes: PERRL, conjunctivae normal, anicteric sclerae Neck: trachea midline, no thyromegaly Respiratory: normal respiratory effort; no retractions Cardiovascular: Rate/Rhythm: regular rhythm; not tachycardic Heart Sounds: no murmur Gastrointestinal (Abdomen): Percussion/Palpation: + abdomen tender and abdomen soft; no guarding and abdomen not rigid Skin: no lesions Results & Data Laboratory Results Laboratory Results - last 24 hr 05/22/18 05/22/18 05/22/18 13:03 13:03 16:02 WBC 5.88 RBC 4.76 Hgb 14.8 Hct 43.2 MCV 90.8 MCH 31.1 MCHC 34.3 RDW Std Deviation 40.1 RDW Coeff of David 11.9 Plt Count 210 MPV 10.5 H Immature Gran % (Auto) 0.2 Neut % (Auto) 56.8 Lymph % (Auto) 31.6 Cocke % (Auto) 10.5 Eos % (Auto) 0.7 Baso % (Auto) 0.2 Immature Gran # (Auto) 0.01 Neut # (Auto) 3.34 Lymph # (Auto) 1.86 Cocke # (Auto) 0.62 H Eos # (Auto) 0.04 Baso # (Auto) 0.01 Sodium 139 Potassium 3.7 Chloride 106 Carbon Dioxide 26 Anion Gap 7.0 BUN 25 H Creatinine 1.16 Est Cr Clr Drug Dosing 49.0 Est GFR ( Amer) 57.2 Est GFR (Non-Af Amer) 49.4 BUN/Creatinine Ratio 21.5 H Glucose 136 H Calcium 9.1 Magnesium Total Bilirubin 0.6 AST 117 H ALT 91 H Alkaline Phosphatase 199 H Troponin I < 0.015 < 0.015 Total Protein 7.2 Albumin 3.9 Globulin 3.3 Albumin/Globulin Ratio 1.2 Lipase 194 05/22/18 05/23/18 05/23/18 22:01 07:00 07:00 WBC 11.48 H RBC 4.87 Hgb 15.1 Hct 44.4 MCV 91.2 MCH 31.0 MCHC 34.0 RDW Std Deviation 41.1 RDW Coeff of David 12.3 Plt Count 229 MPV 10.2 Immature Gran % (Auto) Neut % (Auto) Lymph % (Auto) Cocke % (Auto) Eos % (Auto) Baso % (Auto) Immature Gran # (Auto) Neut # (Auto) Lymph # (Auto) Cocke # (Auto) Eos # (Auto) Baso # (Auto) Sodium 140 Potassium 4.0 Chloride 105 Carbon Dioxide 26 Anion Gap 9.0 BUN 20 H Creatinine 1.29 H Est Cr Clr Drug Dosing 44.0 Est GFR ( Amer) 50.3 Est GFR (Non-Af Amer) 43.4 BUN/Creatinine Ratio 15.5 Glucose 112 H Calcium 9.2 Magnesium 2.2 Total Bilirubin 0.8 AST 380 H ALT 489 H Alkaline Phosphatase 263 H Troponin I < 0.015 Total Protein 7.3 Albumin 3.9 Globulin 3.4 Albumin/Globulin Ratio 1.1 Lipase Diagnostic Findings MR MRCP HISTORY: 67 years-old Female Concern for retained stone acute epigastric abdominal pain with prior cholecystectomy. COMPARISON: CT abdomen and pelvis and right upper quadrant abdominal ultrasound studies of same day TECHNIQUE: MRCP without IV contrast was obtained according to institutional protocol. FINDINGS: Study is mildly motion degraded. Renal cysts redemonstrated. Lower chest and solid abdominal organs appear unremarkable. Prior cholecystectomy. Pneumobilia is better appreciated on the study of same day. Common bile duct is mildly dilated at 8 mm. Mild intrahepatic biliary ductal dilation. There is suggestion of a tiny filling defect noted about the distal common bile duct measuring approximately 3 mm. The distal common bile duct is not well visualized. Pancreatic duct appears normal. No evidence of pancreatic divisum. Soft tissues and bony structures appear unremarkable. IMPRESSION: 1. Motion degraded exam. 2. Cholecystectomy with mild intrahepatic and extrahepatic biliary ductal dilation. Pneumobilia is better appreciated on CT study of same day. 3. Findings are suspicious for choledocholithiasis about the distal common bile duct.
[2018-05-23] MEDS: PANTOprazole 40 MG in SYRINGE 0 ML IV SCH (08:47)
--- NOTE | 2018-05-23 08:55 | Anesthesiology Consultation ---
Date of Service May 23, 2018 Assessment & Plan Chart Review Chart Review: Acceptable Risk for Surgery and Patient NOT seen in Pre Admission Testing Consults Requested none ASA ASA3 Proposed Anesthesia Anesthesia Type: General History Surgery Operation Date: 05/23/18 09:00 Proposed Procedures p Endoscopic Retrograde Cholangiopancreato Agatha Dc Height/Weight Height: 5 ft 3 in Weight: 81.8 kg Allergies Allergy/AdvReac Type Severity Reaction Status Date / Time codeine AdvReac Unknown GI UPSET Verified 05/22/18 13:32 oxycodone AdvReac Unknown SICK Verified 05/22/18 13:32 Medications Home Medications Medication Instructions Recorded Confirmed Last Taken diltiazem HCl [Cartia XT] 360 mg PO DAILY 05/22/18 05/22/18 Unknown hydrochlorothiazide 25 mg PO DAILY 05/22/18 05/22/18 Unknown losartan 100 mg PO DAILY 05/22/18 05/22/18 Unknown rosuvastatin 20 mg PO HS 05/22/18 05/22/18 Unknown Active Medications Generic Name Dose Route Start Last Admin Trade Name Freq PRN Reason Stop Dose Admin Acetaminophen 650 mg 05/22/18 19:39 05/23/18 04:44 Tylenol PO 06/21/18 19:38 650 mg Q4H PRN Administration pain/fever Pantoprazole Sodium 40 mg/ 10 mls @ 5 mls/min 05/22/18 21:00 05/23/18 08:47 Syringe IV 06/21/18 20:59 5 mls/min BID JOSE Administration Beta Matt Beta Matt Taken Within 24 Hours: No (not prescribed) Past Medical History Medical History Vitamin D deficiency (Chronic) Osteopenia (Chronic) Irritable bowel syndrome (Chronic) Hypertension (Chronic) Hyperlipidemia (Chronic) History of shingles (Chronic) Eczema (Chronic) Anxiety (Chronic) Depression (Chronic) Benign paroxysmal positional vertigo (Resolved) Asthma (Chronic) ELLA (acute kidney injury) CAD (coronary artery disease) Past Family History Family History Other Family history non-contributory Past Surgical History Surgical History History of hysterectomy (Chronic) History of cholecystectomy (Chronic) Past Anesthesia History No Hx of Anesthesia Complications and No Family Hx of Anesthesia Complications History of PONV No Motion Sickness Screening History of Motion Sickness: No Social History Smoking Status: Never smoker Do You Dip or Chew Tobacco: No Hx Alcohol Use: No Hx Substance Use: No Exercise / Class Metabolic Activity III < 4 Walking/Shop/Light housework Physical Exam Vital Signs Last Vital Signs Temp 37.0 C 05/23/18 07:15 Pulse 98 H 05/23/18 08:53 Resp 18 05/23/18 07:15 BP 135/79 05/23/18 08:53 Pulse Ox 92 05/23/18 07:15 Testing Electrocardiogram Date: 05/22/18 Findings: + NSR @ (at 97;LVH;LAE) Chest X-Ray Date: 05/22/18 Findings: + atelectasis (left basilar vs pneumonitis) Laboratory Results 05/23/18 07:00 05/23/18 07:00
[2018-05-23] MEDS ORDERED: LOSARTAN POTASSIUM 50 MG TAB PO SCH (09:00)
[2018-05-23] MEDS ORDERED: hydroCHLOROthiazide 25 MG TAB PO SCH (09:00)
[2018-05-23] MEDS: dilTIAZem HCL 180 MG CAPCR PO SCH (09:03)
[2018-05-23] MEDS: SODIUM CHLORIDE 0.9% 1000ML 1,000 ML IV SCH ×2 (09:46→20:28)
[2018-05-23] MEDS ORDERED: PROPOFOL IV EMULSION 10 MG/ML 20 ML VIAL IV ONE (10:39)
[2018-05-23] MEDS ORDERED: GLYCOPYRROLATE 0.2 MG/ML VIAL ONE (10:39)
[2018-05-23] MEDS ORDERED: DEXAMETHASONE SOD INJ 4 MG/ML VIAL ONE (10:39)
[2018-05-23] MEDS ORDERED: ONDANSETRON INJ 2 MG/ML 2 ML VIAL ONE (10:39)
[2018-05-23] MEDS ORDERED: ROCURONIUM BROMIDE 10 MG/ML 5 ML VIAL ONE (10:39)
[2018-05-23] MEDS ORDERED: NEOSTIGMINE METHYLSULFATE 5 MG/5 ML SYR ONE (10:39)
[2018-05-23] MEDS ORDERED: LIDOCAINE HCL 2% 2 ML VIAL/AMP(20MG/ML) INFIL ONE (10:39)
[2018-05-23] MEDS ORDERED: fentaNYL citrate 100 MCG/2 ML VIAL ONE ×2 (10:40→11:54)
[2018-05-23] MEDS ORDERED: MIDAZOLAM HCL 1 MG/ML 2ML VIAL ONE (10:40)
[2018-05-23] MEDS ORDERED: ATROPINE SULFATE 0.1 MG/ML 10ML SYR IV PRN (11:05)
[2018-05-23] MEDS ORDERED: PROMETHAZINE HCL 12.5 MG in SODIUM CHLORIDE 0.9% 50 ML IV PRN (11:05)
[2018-05-23] MEDS ORDERED: FLUMAZENIL 0.1 MG/1 ML 10 ML VIAL IV PRN (11:05)
[2018-05-23] MEDS ORDERED: fentaNYL citrate 100 MCG/2 ML VIAL IV PRN (11:05)
[2018-05-23] MEDS ORDERED: ONDANSETRON INJ 2 MG/ML 2 ML VIAL IV PRN (11:05)
[2018-05-23] MEDS ORDERED: ePHEDrine sulfate 50 MG/ML AMP IV PRN (11:05)
[2018-05-23] MEDS ORDERED: LABETALOL HCL IV 5 MG/ML 20ML IV PRN (11:05)
[2018-05-23] MEDS ORDERED: NALOXONE HCL 0.4 MG/1 ML VIAL/CARP IV PRN (11:05)
[2018-05-23] MEDS ORDERED: ESMOLOL HCL INJ 10 MG/ML 10ML VIAL IV ONE (11:31)
--- NOTE | 2018-05-23 12:33 | Post Operative Brief Note ---
Immediate Post Op Note v1 Date of Surgery May 23, 2018 Pre & Post Diagnosis Operation Date: 05/23/18 09:00 Pre-Op Diagnosis: Choledocholithiasis Post-Op Diagnosis: Choledocholithiasis Procedure Operation Date: 05/23/18 09:00 Actual Procedures p Endoscopic Retrograde Cholangiopancreatography, sphincterotomy, stricture dilatation, biliary stent placement(Not Applicable) - Maurilio Dc Surgeon Maurilio Dc Fitter/Welder none Estimated Blood Loss 0 Findings See Below (Biliary stricture / impacted stone material)
--- NOTE | 2018-05-23 12:49 | GI REPORT ---
Patient Name: Corey Harris Procedure Date: 05/23/2018 9:16 AM Date of : 1950 Admit Type: Inpatient Age: 67 Gender: Female Attending MD: Maurilio Dc DO Procedure: ERCP Providers: Maurilio Dc DO Referring MD: Lary Atkins Md Indications: Abdominal pain of suspected biliary origin, Abnormal MRCP, Elevated liver enzymes Medicines: Monitored Anesthesia Care Complications: No immediate complications. Estimated blood loss: Minimal. Estimated Blood Loss: Estimated blood loss was minimal. Procedure: Pre-Anesthesia Assessment: - Prior to the procedure, a History and Physical was performed, and patient medications, allergies and sensitivities were reviewed. The patient's tolerance of previous anesthesia was reviewed. - The risks and benefits of the procedure and the sedation options and risks were discussed with the patient. All questions were answered and informed consent was obtained. - Patient identification and proposed procedure were verified prior to the procedure by the physician, the nurse and the supervisor mapping. The procedure was verified in the procedure room. - Pre-procedure physical examination revealed no contraindications to sedation. - ASA Grade Assessment: III - A patient with severe systemic disease. - After reviewing the risks and benefits, the patient was deemed in satisfactory condition to undergo the procedure. - The anesthesia plan was to use general anesthesia. - Immediately prior to administration of medications, the patient was re-assessed for adequacy to receive sedatives. - The heart rate, respiratory rate, oxygen saturations, blood pressure, adequacy of pulmonary ventilation, and response to care were monitored throughout the procedure. - The physical status of the patient was re-assessed after the procedure. After obtaining informed consent, the scope was passed under direct vision. Throughout the procedure, the patient's blood pressure, pulse, and oxygen saturations were monitored continuously. The Scope was introduced through the mouth, and advanced to the duodenum and used to inject contrast into the bile duct. The ERCP was accomplished without difficulty. The patient tolerated the procedure well. Findings: A tank washer film of the abdomen was obtained. Surgical clips, consistent with a previous cholecystectomy, were seen in the area of the right upper quadrant of the abdomen. The esophagus was successfully intubated under direct vision without detailed examination of the pharynx, larynx, and associated structures, and upper GI tract. The upper GI tract was grossly normal. The major papilla was located entirely within a diverticulum. The major papilla was congested. The bile duct was deeply cannulated with the short-nosed traction sphincterotome (Omni 35) and 0.035 in Acrobat 2 guidewire on the first attempt (PD not cannulated or injected). Contrast was injected. I personally interpreted the bile duct images. Contrast extended to the entire biliary tree. A cholecystectomy had been performed. The middle third of the main bile duct contained a single mild stenosis. The middle third of the main bile duct contained what appeared to be one stone. Biliary sphincterotomy was made with a monofilament Fusion OMNI sphincterotome using ERBE electrocautery. There was no post-sphincterotomy bleeding. Some stone material came out of the duct after the sphincterotomy. We were unable to pass an extraction balloon into the duct. Therefore dilation of the entire main bile duct with 7 Fr catheter and 8-10 Fr catheter dilator was successful (unable to pass a balloon dilator). We attempted to swepp the biliary tree however the balloon would not pass beyond the suspected stone. One 8.5 Fr by 8 cm biliary stent with a single external flap and a single internal flap was placed 8 cm into the common bile duct. Bile flowed through the stent. The stent was in good position. Indomethacin 100 mg was given via suppository to decrease the risk of post-ERCP pancreatitis (PEP). Impression: - The major papilla was located entirely within a diverticulum. - The major papilla appeared congested. - A single mild biliary stricture was found in the middle third of the main bile duct in the region of an impacted stone. - A biliary sphincterotomy was performed. - One biliary stent was placed into the common bile duct. - Indomethacin given to decrease risk of post-ERCP pancreatitis. Recommendation: - Avoid aspirin and nonsteroidal anti-inflammatory medicines for 5 days. - Clear liquid diet today. - Repeat ERCP in 4 to 6 weeks for retreatment. Maurilio Dc D.O. Maurilio Dc DO 05/23/2018 12:48:57 PM This report has been signed electronically. Note Initiated On: 05/23/2018 9:16 AM Number of Addenda: 0 I attest to the content of the Intraoperative Record and orders documented therein, exceptions below {[id number]}
--- NOTE | 2018-05-23 13:33 | Anesthesiology Progress Note ---
Date of Service May 23, 2018 Anesthesia Post Procedure Vital Signs Vital Signs: Temp Pulse Pulse Pulse Resp BP BP 05/23/18 13:10 36.6 C 77 20 05/23/18 13:00 80 20 05/23/18 12:50 77 18 05/23/18 12:42 36.3 C L 86 18 05/23/18 08:53 98 H 135/79 05/23/18 07:15 37.0 C 108 H 18 05/22/18 23:07 37.3 C 108 H 18 135/85 05/22/18 18:51 102 H 18 154/80 H 05/22/18 18:30 105 H 22 05/22/18 18:00 98 H 16 05/22/18 17:35 110 H 16 05/22/18 17:34 108 H 18 182/89 H 05/22/18 17:33 113 H 15 182/89 H 05/22/18 16:45 156/88 H 05/22/18 16:30 36.4 C L 89 18 156/88 H 05/22/18 14:49 101 H 25 H 138/71 05/22/18 14:09 83 88 18 148/89 H 148/89 H BP Pulse Ox 05/23/18 13:10 142/83 H 96 05/23/18 13:00 140/78 98 05/23/18 12:50 125/88 94 05/23/18 12:42 127/72 97 05/23/18 08:53 05/23/18 07:15 123/76 92 05/22/18 23:07 90 05/22/18 18:51 94 05/22/18 18:30 05/22/18 18:00 05/22/18 17:35 05/22/18 17:34 98 05/22/18 17:33 05/22/18 16:45 96 05/22/18 16:30 98 05/22/18 14:49 05/22/18 14:09 96 Pain Intensity Chest: Pain Intensity: 4 Left Posterior Shoulder: Pain Intensity: 6 Notes Mental Status: alert / awake / arousable Patient Amnestic to Procedure: Yes Nausea / Vomiting: adequately controlled Pain: adequately controlled Airway Patency, RR, SpO2: stable & adequate BP & HR: stable & adequate Hydration State: stable & adequate Anesthetic Complications: no major complications apparent
--- NOTE | 2018-05-23 14:41 | Fluoroscopy Report ---
[place] ERCP biliary ductal CLINICAL HISTORY: 67 years-old Female presenting with ERCP. TECHNIQUE: Fluoroscopy was provided for endoscopic retrograde cholangiopancreatography. 9 fluoroscopi c image(s) recorded. COMPARISON: MRCP from the previous day. FINDINGS: Procedure: An endoscope projects over the descending duodenum. A microcatheter was inserted into the bile ducts, and potential filling defect in the common duct. Cholecystectomy clips noted. Nondistende d cystic duct remnant. A balloon was used to clear the common duct. The common duct was opacified wit h contrast. Peritoneal spillage: No evidence of peritoneal spillage of contrast. Extrahepatic bile ducts: The common bile duct is normal in course and caliber. Potential filling defe cts seen within the common bile duct. Contrast did not extend into the small bowel. Intrahepatic bile ducts: There is no intrahepatic bile duct dilatation. Fluoroscopy dosage (mGy): 71.27. Fluoroscopy time: 250.5 seconds. Number or time of fluoroscopic spot images: 0. IMPRESSION: Suspected choledocholithiasis with balloon clearance on ERCP. Electronically signed by: Vinh Ashraf M.D. 05/23/2018 2:39 PM
--- NOTE | 2018-05-23 15:28 | Hospitalist Progress Note ---
Date of Service May 23, 2018 Assessment & Plan (1) Epigastric abdominal pain: Patient presents with epigastric abdominal pain, LFTs specifically AST and ALT are much more elevated in the day after admission, total bilirubin remains normal. Right upper quadrant ultrasound with CBD [address] abdomen/pelvis without significant abnormality MRCP shows a possible 3 mm CBD stone distally. ERCP on 05/23 performed by GI and showed a stone in the middle portion of the CBD-sphincterotomy was performed and a biliary stent was placed with partial removal of stone and bile was passing through at the end -Cardiac etiology ruled out with negative troponin x3 and no evidence of ischemi a on ECG -Clear liquids diet for now -Avoid NSAIDs and aspirin-containing products for the next 5 days and sphincterotomy -Follow LFTs, lipase in the morning -Was given rectal indomethacin to prevent post ERCP pancreatitis but will monitor for this -Needs repeat ERCP for repeat treatment in 4-6 weeks and likely removal of biliary stent at that time -Appreciate GI consultation -Pain control and antiemetics as needed -Continue IV fluids but decrease to 75 mls per hour -Can DC PPI as no evidence of gastritis or PUD present on EGD (2) Elevated liver function tests: AST/ALT elevated to again today to AST 380, ALT 49, T bili remains normal at 0.8 LFTs were normal <1 month ago. Has been on a statin for at least 6 months Secondary to choledocholithiasis - Trend LFTs - Hold statin - Plan as above (3) Hypertension: BP initially elevated in the ED to 190/90 in the setting of significant pain. Now much improved after pain control -Hold HCTZ and losartan for mild increase in creatinine and poor p.o. intake at this time -Continue diltiazem 360 mg once daily (4) Hyperlipidemia: - Holding statin as above (5) DVT prophylaxis: SCDs - Low risk per calculator, avoid anticoagulation at this time due to the recent sphincterotomy Disposition-remain on medical floor, possibly discharged home tomorrow if tolerating regular diet and no evidence of acute pancreatitis Subjective Patient feeling much better now. She is a little drowsy from anesthesia from her ERCP she had this morning with biliary stent and sphincterotomy performed. She denies any abdominal pain. Last bowel movement 2 days ago. Denies nausea and tolerated a small amount of clear liquids for lunch. Reports she was recently started on hydrochlorothiazide 2 weeks ago for ankle swelling and questions if this caused her biliary stone? Denies chest pain or shortness of breath. Review of Systems All systems reviewed & are unremarkable except as noted in HPI & below Physical Exam Vital Signs (Past 24 Hours): Last Vital Signs Temp 36.4 C L 05/23/18 14:25 Pulse 82 05/23/18 14:25 Resp 18 05/23/18 14:25 BP 149/80 H 05/23/18 14:25 Pulse Ox 96 05/23/18 14:25 Constitutional: WD/WN, vitals as above Eyes: PERRL, conjunctivae normal, anicteric sclerae Neck: trachea midline, no thyromegaly Respiratory: normal respiratory effort, lungs clear to auscultation Cardiovascular: RRR, no murmur, no edema Gastrointestinal (Abdomen): Inspection/Auscultation: abdomen normal to inspection and normal bowel sounds; abdomen not distended Percussion/Palpation: + abdomen tender (Mildly tender in the right upper quadrant without guarding or rebound) and abdomen soft Musculoskeletal: Extremities: extremities normal to inspection; no cyanosis and no clubbing Skin: no rashes, warm and dry Neurologic: moves all extremities and awake; no focal motor deficits Psychiatric: A+Ox3, euthymic affect Results & Data Laboratory Results 05/23/18 05/23/18 05/22/18 Range/Units 07:00 07:00 22:01 WBC 11.48 H (4.8-10.8) K/uL RBC 4.87 (4.2-5.4) M/uL Hgb 15.1 (12.0-16.0) g/dL Hct 44.4 (37-47) % MCV 91.2 (80-100) fL MCH 31.0 (25-34) pg MCHC 34.0 (32-36) g/dL RDW Std Deviation 41.1 (36.4-46.3) fL RDW Coeff of David 12.3 (11.5-14.5) % Plt Count 229 (130-400) K/uL MPV 10.2 (7.4-10.4) fL Sodium 140 (136-145) mmol/L Potassium 4.0 (3.5-5.1) mmol/L Chloride 105 (98-107) mmol/L Carbon Dioxide 26 (21-32) mmol/L Anion Gap 9.0 (3-11) BUN 20 H (7-18) mg/dl Creatinine 1.29 H (0.6-1.2) mg/dl Est Cr Clr Drug Dosing 44.0 ml/min Est GFR ( Amer) 50.3 Est GFR (Non-Af Amer) 43.4 BUN/Creatinine Ratio 15.5 (10-20) Glucose 112 H (70-99) mg/dl Calcium 9.2 (8.5-10.1) mg/dl Magnesium 2.2 (1.8-2.4) mg/dl Total Bilirubin 0.8 (0.2-1) mg/dl AST 380 H (15-37) U/L ALT 489 H (12-78) U/L Alkaline Phosphatase 263 H (45-117) U/L Troponin I < 0.015 (0-0.045) ng/ml Total Protein 7.3 (6.4-8.2) gm/dl Albumin 3.9 (3.4-5.0) gm/dl Globulin 3.4 (2.5-4.0) gm/dl Albumin/Globulin Ratio 1.1 (0.9-2) 05/22/18 Range/Units 16:02 WBC (4.8-10.8) K/uL RBC (4.2-5.4) M/uL Hgb (12.0-16.0) g/dL Hct (37-47) % MCV (80-100) fL MCH (25-34) pg MCHC (32-36) g/dL RDW Std Deviation (36.4-46.3) fL RDW Coeff of David (11.5-14.5) % Plt Count (130-400) K/uL MPV (7.4-10.4) fL Sodium (136-145) mmol/L Potassium (3.5-5.1) mmol/L Chloride (98-107) mmol/L Carbon Dioxide (21-32) mmol/L Anion Gap (3-11) BUN (7-18) mg/dl Creatinine (0.6-1.2) mg/dl Est Cr Clr Drug Dosing ml/min Est GFR ( Amer) Est GFR (Non-Af Amer) BUN/Creatinine Ratio (10-20) Glucose (70-99) mg/dl Calcium (8.5-10.1) mg/dl Magnesium (1.8-2.4) mg/dl Total Bilirubin (0.2-1) mg/dl AST (15-37) U/L ALT (12-78) U/L Alkaline Phosphatase (45-117) U/L Troponin I < 0.015 (0-0.045) ng/ml Total Protein (6.4-8.2) gm/dl Albumin (3.4-5.0) gm/dl Globulin (2.5-4.0) gm/dl Albumin/Globulin Ratio (0.9-2)
[2018-05-23] MEDS ORDERED: ROSUVASTATIN CALCIUM 20 MG TAB PO SCH (21:00)
[2018-05-24 06:03] LABS: Hematocrit (blood only) 42.1 % (37-47); Hemoglobin 14.3 g/dL (12.0-16.0); Immature Granulocytes # (auto) 0.01 K/uL (0.00-0.02); Immature Granulocytes % (auto) 0.1 %; Lymphocytes # (auto) 0.87 K/uL (1.2-3.4); Lymphocytes % (auto) 9.2 %; Mean Corpuscular Volume 90.9 fL (80-100); Mean Platelet Volume 9.7 fL (7.4-10.4); Monocytes # (auto) 0.66 K/uL (0.11-0.59); Monocytes % (auto) 6.9 %; Neutrophils # (auto) 7.96 K/uL (1.4-6.5); Neutrophils % (auto) 83.8 %; Platelet Count 177 K/uL (130-400); RDW Standard Deviation 40.4 fL (36.4-46.3); Red Blood Count 4.63 M/uL (4.2-5.4)
[2018-05-24] MEDS: SODIUM CHLORIDE 0.9% 1000ML 1,000 ML IV SCH ×2 (06:20→19:12)
[2018-05-24 06:30] LABS: Albumin Level 3.4 gm/dl (3.4-5.0); BUN Creatinine Ratio 16.3 (10-20); Bilirubin Direct 0.2 mg/dl (0-0.2); Bilirubin,Total 0.4 mg/dl (0.2-1); Calcium 8.3 mg/dl (8.5-10.1); Creatinine Clr Calc Pharmacy 57.4 ml/min; Est GFR (African American) 69.3; Est GFR (Non-African American) 59.8; Potassium 3.9 mmol/L (3.5-5.1); Total Protein 6.6 gm/dl (6.4-8.2)
[2018-05-24] MEDS: dilTIAZem HCL 180 MG CAPCR PO SCH (08:16)
--- NOTE | 2018-05-24 12:46 | Gastroenterology Progress Note ---
Date of Service May 24, 2018 Assessment & Plan (1) Choledocholithiasis: Ms. Corey Harris is a post procedure day #1 from ERCP for choledocholithiasis. A stent was placed and LFTs have improved. However, she continues with waves of upper abdomen discomfort suggestive of continued biliary colic vs mild cramping discomfort such as from IBS. Plan: Would continue clear liquids for now. Will conintinue to follow. Supervising Physician Co-Signing Physician Notes Late entry: The patient was seen and examined with ANNY Valente on 05/24. Her note reflects our findings and plan Subjective Gastrointestinal: as per Subjective / HPI, + abdominal pain (intermittent upper abdomen cramping, worse after drinking clear liquids), + bloating, + early satiety and + nausea Musculoskeletal: + back pain; no neck pain Psychiatric: + change in appetite; no hopelessness and no suicidal ideation Physical Exam Vital Signs (Past 24 Hours): Last Vital Signs Temp 36.9 C 05/24/18 07:20 Pulse 85 05/24/18 07:20 Resp 18 05/24/18 07:20 BP 148/83 H 05/24/18 07:20 Pulse Ox 92 05/24/18 07:20 Constitutional: WD/WN, vitals as above ENMT: external ear and nose normal, oropharynx normal Neck: trachea midline, no thyromegaly Respiratory: normal respiratory effort, lungs clear to auscultation Cardiovascular: RRR, no murmur, no edema Gastrointestinal (Abdomen): Inspection/Auscultation: abdomen normal to inspection and normal bowel sounds; abdomen not distended Percussion/Palpation: + abdomen tender (minimal upper abdomen tenderness) and abdomen soft Skin: no rashes, warm and dry Neurologic: PERRL, EOMI, accommodation nl, no face palsy, no dysarthria Psychiatric: A+Ox3, euthymic affect Lymphatic: no cervical or axillary lymphadenopathy
--- NOTE | 2018-05-24 16:32 | Hospitalist Progress Note ---
Date of Service May 24, 2018 Assessment & Plan (1) Epigastric abdominal pain: Patient presents with epigastric abdominal pain, LFTs, specifically AST and ALT, were much more elevated in the day after admission, total bilirubin remains normal. RUQ ultrasound with CBD [address] abdomen/pelvis without significant abnormality MRCP shows a possible 3 mm CBD stone distally. ERCP on 05/23 performed by GI and showed a stone in the middle portion of the CBD- sphincterotomy was performed and a biliary stent was placed with partial removal of stone and bile was passing through at the end -Cardiac etiology ruled out with negative troponin x3 and no evidence of ischemia on ECG LFTs improving, lipase remains normal With some post-prandial pains today, likely IBS vs from the stent and not likely persisting biliary colic as LFTs trending downward and stent in place -adv diet to fulls -start Bentyl 10mg po bid -Avoid NSAIDs and aspirin-containing products for 4 more days due to sphincterotomy -Follow LFTs in the morning -Was given rectal indomethacin to prevent post ERCP pancreatitis but will monitor for this-no evidence today despite epigastric pain-lipase normal -Needs repeat ERCP for repeat treatment in 4-6 weeks and likely removal of biliary stent at that time -Appreciate GI consultation -Pain control and antiemetics as needed -Continue IV fluids 70 mls per hour (2) Elevated liver function tests: AST/ALT elevated to AST 380, ALT 489, T bili normal on day after admission, now all trending downward after biliary stent placed LFTs were normal <1 month ago. Has been on a statin for at least 6 months Secondary to choledocholithiasis - Trend LFTs - continue to hold statin - Plan as above (3) Hypertension: BP initially elevated in the ED to 190/90 in the setting of significant pain. Now much improved after pain control -continue to hold HCTZ and losartan until taking more po and not requiring IVFs -Continue diltiazem 360 mg once daily (4) Hyperlipidemia: - Holding statin as above (5) DVT prophylaxis: SCDs - Low risk per calculator, avoid anticoagulation at this time due to the recent sphincterotomy Disposition-remain on medical floor, possibly discharged home tomorrow if tolerating regular diet and no evidence of acute pancreatitis Subjective Pt is having some crampy upper abd pain with eating. No nausea or vomiting, is passing flatus, no BM. No CP or SOB. Discussed the case with GI--> recommends starting bentyl for IBS Pt has been ambulating, not lightheaded, no headache. Feels her urine is lightening in color. Is cristhian plenty of po water Review of Systems All systems reviewed & are unremarkable except as noted in HPI & below Physical Exam Vital Signs (Past 24 Hours): Last Vital Signs Temp 36.4 C L 05/24/18 15:17 Pulse 79 05/24/18 15:17 Resp 20 05/24/18 15:17 BP 130/80 05/24/18 15:17 Pulse Ox 94 05/24/18 15:17 Constitutional: WD/WN, vitals as above Eyes: PERRL, conjunctivae normal, anicteric sclerae Neck: trachea midline, no thyromegaly Respiratory: normal respiratory effort, lungs clear to auscultation Cardiovascular: RRR, no murmur, no edema Gastrointestinal (Abdomen): Inspection/Auscultation: abdomen normal to inspection and normal bowel sounds; abdomen not distended Percussion/ Palpation: + abdomen tender (Mildly tender in the RUQ and epigastric and without guarding or rebound) and abdomen soft Musculoskeletal: Extremities: extremities normal to inspection; no cyanosis and no clubbing Skin: no rashes, warm and dry Neurologic: moves all extremities and awake; no focal motor deficits Psychiatric: A+Ox3, euthymic affect Results & Data Laboratory Results 05/24/18 05/24/18 Range/Units 05:50 05:50 WBC 9.50 (4.8-10.8) K/uL RBC 4.63 (4.2-5.4) M/uL Hgb 14.3 (12.0-16.0) g/dL Hct 42.1 (37-47) % MCV 90.9 (80-100) fL MCH 30.9 (25-34) pg MCHC 34.0 (32-36) g/dL RDW Std Deviation 40.4 (36.4-46.3) fL RDW Coeff of David 12.0 (11.5-14.5) % Plt Count 177 (130-400) K/uL MPV 9.7 (7.4-10.4) fL Immature Gran % (Auto) 0.1 % Neut % (Auto) 83.8 % Lymph % (Auto) 9.2 % [place] % (Auto) 6.9 % Eos % (Auto) 0.0 % Baso % (Auto) 0.0 % Immature Gran # (Auto) 0.01 (0.00-0.02) K/uL Neut # (Auto) 7.96 H (1.4-6.5) K/uL Lymph # (Auto) 0.87 L (1.2-3.4) K/uL [place] # (Auto) 0.66 H (0.11-0.59) K/uL Eos # (Auto) 0.00 (0-0.5) K/uL Baso # (Auto) 0.00 (0-0.2) K/uL Sodium 141 (136-145) mmol/L Potassium 3.9 (3.5-5.1) mmol/L Chloride 110 H (98-107) mmol/L Carbon Dioxide 25 (21-32) mmol/L Anion Gap 6.0 (3-11) BUN 16 (7-18) mg/dl Creatinine 0.99 D (0.6-1.2) mg/dl Est Cr Clr Drug Dosing 57.4 ml/min Est GFR ( Amer) 69.3 Est GFR (Non-Af Amer) 59.8 BUN/Creatinine Ratio 16.3 (10-20) Glucose 119 H (70-99) mg/dl Calcium 8.3 L (8.5-10.1) mg/dl Total Bilirubin 0.4 (0.2-1) mg/dl Direct Bilirubin 0.2 (0-0.2) mg/dl AST 164 H (15-37) U/L ALT 371 H (12-78) U/L Alkaline Phosphatase 235 H (45-117) U/L Total Protein 6.6 (6.4-8.2) gm/dl Albumin 3.4 (3.4-5.0) gm/dl Lipase 86 (73-393) U/L
[2018-05-24] MEDS: DICYCLOMINE HCL 10 MG CAP PO SCH (17:45)
[2018-05-25] MEDS: ACETAMINOPHEN 325 MG TAB PO PRN
[2018-05-25 06:16] LABS: Basophils # (auto) 0.01 K/uL (0-0.2); Basophils % (auto) 0.1 %; Eosinophils # (auto) 0.02 K/uL (0-0.5); Eosinophils % (auto) 0.3 %; Hematocrit (blood only) 40.4 % (37-47); Hemoglobin 13.1 g/dL (12.0-16.0); Immature Granulocytes # (auto) 0.02 K/uL (0.00-0.02); Immature Granulocytes % (auto) 0.3 %; Lymphocytes # (auto) 1.98 K/uL (1.2-3.4); Lymphocytes % (auto) 25.1 %; Mean Corpuscular Hgb Conc 32.4 g/dL (32-36); Mean Corpuscular Volume 93.5 fL (80-100); Monocytes % (auto) 11.4 %; Neutrophils # (auto) 4.97 K/uL (1.4-6.5); Neutrophils % (auto) 62.8 %; Platelet Count 195 K/uL (130-400); RDW Coefficient of Variation 12.4 % (11.5-14.5); RDW Standard Deviation 42.3 fL (36.4-46.3); Red Blood Count 4.32 M/uL (4.2-5.4)
[2018-05-25 06:47] LABS: BUN Creatinine Ratio 14.5 (10-20); Bilirubin Direct 0.1 mg/dl (0-0.2); Bilirubin,Total 0.4 mg/dl (0.2-1); Calcium 7.9 mg/dl (8.5-10.1); Creatinine Clr Calc Pharmacy 66.1 ml/min; Est GFR (African American) 82.2; Est GFR (Non-African American) 70.9; Potassium 3.5 mmol/L (3.5-5.1); Total Protein 5.8 gm/dl (6.4-8.2)
[2018-05-25] MEDS ORDERED: Nursing to Pharmacy Communication ONE (07:37)
[2018-05-25] MEDS: SODIUM CHLORIDE 0.9% 1000ML 1,000 ML IV SCH (08:14)
[2018-05-25] MEDS: DICYCLOMINE HCL 10 MG CAP PO SCH ×2 (08:15→21:01)
[2018-05-25] MEDS: dilTIAZem HCL 180 MG CAPCR PO SCH (08:16)
--- NOTE | 2018-05-25 11:19 | Gastroenterology Progress Note ---
Date of Service May 25, 2018 Assessment & Plan (1) Choledocholithiasis: Ms. Corey Harris is a post procedure day #2 from ERCP for choledocholithiasis. A stent was placed and LFTs have improved. Now with brief cramping upper abdomen pain after drinking/eating. Plan: 1. OK for DC from a GI standpoint. 2. Bentyl 10mg BID. 3. Plan for OP ERCP in 4 weeks. Our office will call this pt to arrange. Supervising Physician Co-Signing Physician Notes I discussed patient with ANNY Valente. Patient not seen by me today, as discharged. Subjective Ms. Corey Harris is a 67 yr old female who underwent ERCP with bile duct stenting and improvement of LFTs on 05/23/18. Today with 8 of 10 cramping upper abdomen pain after eating/drinking but only lasting a few seconds, then only mild aching of the upper abdomen. On a full liquid diet. Saying "I want to go home." Gastrointestinal: as per Subjective / HPI, + abdominal pain (intermittent upper abdomen cramping, worse after drinking clear liquids), + bloating, + early satiety and + nausea Musculoskeletal: + back pain; no neck pain Psychiatric: + change in appetite; no hopelessness and no suicidal ideation Physical Exam Vital Signs (Past 24 Hours): Last Vital Signs Temp 36.6 C 05/25/18 07:48 Pulse 79 05/25/18 07:48 Resp 94 H 05/25/18 07:48 BP 134/84 05/25/18 07:48 Pulse Ox 92 05/24/18 23:00 Constitutional: WD/WN, vitals as above well developed and cooperative Eyes: PERRL, conjunctivae normal, anicteric sclerae ENMT: external ear and nose normal, oropharynx normal Neck: trachea midline, no thyromegaly Respiratory: normal respiratory effort, lungs clear to auscultation normal respiratory effort and able to speak in complete sentences; no respiratory distress, no labored breathing, does not use accessory muscles and no cough Cardiovascular: RRR, no murmur, no edema Gastrointestinal (Abdomen): Inspection/Auscultation: abdomen normal to inspection and normal bowel sounds; abdomen not distended Percussion/Palpation: + abdomen tender (minimal upper abdomen tenderness) and ab domen soft Skin: no rashes, warm and dry normal turgor and + pallor Neurologic: PERRL, EOMI, accommodation nl, no face palsy, no dysarthria awake; not confused Psychiatric: A+Ox3, euthymic affect Orientation: alert, oriented x 3 and cooperative Lymphatic: no cervical or axillary lymphadenopathy
--- NOTE | 2018-05-25 12:06 | XRay Report ---
XR abdomen 2V w PA chest CLINICAL HISTORY: recent ERCP; upper abd pain; eval free air, ileus COMPARISON STUDY: Chest x-ray dated 05/22/2018 FINDINGS: The erect chest reveals no evidence of focal pulmonary consolidation. There is no free air. Erect and supine views the abdomen reveal no abnormally dilated loops of large or small bowel. There are no transition zones indicate bowel obstruction. There is a biliary enteric stent present. There are surgical clips in the right upper quadrant consistent with a prior cholecystectomy. There are non specific pelvic basin calcifications, likely representing phleboliths. There are surgical clips prese nt within the pelvis. IMPRESSION: 1. No evidence of bowel obstruction 2. No evidence of free air 3. The right upper quadrant biliary enteric stent is visualized Electronically signed by: Cameron Cruz M.D. 05/25/2018 12:05 PM
[2018-05-25] MEDS ORDERED: BISACODYL 10 MG SUPP PR STA (12:17)
[2018-05-25] MEDS: SUCRALFATE 1 GM/10 ML UDC PO SCH ×3 (13:22→21:01)
[2018-05-25] MEDS: POLYETHYLENE (MIRALAX) 17 GM PACK PO SCH ×2 (18:41→21:01)
--- NOTE | 2018-05-25 22:13 | Hospitalist Progress Note ---
Date of Service May 25, 2018 Assessment & Plan (1) Choledocholithiasis: with suspected biliary colic and elevated LFTs. latter improving daily. s/p ERCP with sphincterotomy, stone extraction (at least partial by report), and CBD stent deployment. noted to have biliary stricture during the ERCP as well in addition to impacted stone. repeat LFTs in am. no signs/symptoms of superimposed infection at this time. I don't believe current pain is due to biliary colic - see below. appreciate GI assistance. repeat ERCP in 1 month for stent retrieval. advance diet to low fat today. Present on Admission?: Yes (2) Elevated liver function tests: see above. improving. lfts in am. (3) Biliary stricture: noted on ERCP s/p CBD stent (4) Epigastric abdominal pain: pain is nearly instantaneous after eating/drinking. this is not typical for biliary colic. rather, this pain could be reflux pain, esophageal spasm, gastric pain, IBS, colonic spasm from constipation, etc. ERCP report states "upper GI tract grossly normal". added IV zantac and carafate in the event this is GORDO related. treating constipation based on KUB x-ray today. lipase today NORMAL. LFTs improving. advance diet. serial exams. hold off on d/c today. can stop fluids. Present on Admission?: Yes (5) Hypertension: controlled cont ARB (6) Hyperlipidemia: holding statin due to abnormal LFTs (7) Constipation: dulcolax suppos x 1 then bowel regimen with miralax (8) DVT prophylaxis: SCDs ambulate total time today 40 minutes - 2 separate visits to bedside updated twice Subjective patient continuing to c/o episodic, high epigastric discomfort that comes typically within seconds of eating/drinking. pain similar to when she first came to hospital. despite the pain she is consuming 100% of meals. last BM several days ago. passing flatus. no nausea or emesis. Constitutional: no fever and no chills Respiratory: no cough and no dyspnea Cardiovascular: no chest pain Gastrointestinal: + abdominal pain; no diarrhea/loose stools and no blood in stools Physical Exam Vital Signs (Past 24 Hours): Last Vital Signs Temp 36.5 C 05/25/18 16:00 Pulse 71 05/25/18 16:00 Resp 18 05/25/18 16:00 BP 137/84 05/25/18 16:00 Pulse Ox 94 05/25/18 16:00 Constitutional: well developed, well nourished and + obese; no acute distress ENMT: external ear and nose normal, oropharynx normal Respiratory: normal respiratory effort, lungs clear to auscultation Cardiovascular: Rate/Rhythm: regular rate and regular rhythm Heart Sounds: normal S1 and normal S2; no murmur Vessels: posterior tibial pulses present and dorsalis pedis pulses present; no JVD Extremities: no edema Gastrointestinal (Abdomen): Inspection/Auscultation: + abdomen distended (minimal) and normal bowel sounds Percussion/Palpation: no hepatosplenomegaly mild tenderness just under the xiphoid process and near the LUQ; no RUQ pain/tenderness Skin: no rashes, warm and dry Psychiatric: A+Ox3, euthymic affect Results & Data Laboratory Results Laboratory Results - last 24 hr 05/25/18 05/25/18 05/25/18 05:42 05:42 05:42 WBC 7.90 RBC 4.32 Hgb 13.1 Hct 40.4 MCV 93.5 MCH 30.3 MCHC 32.4 RDW Std Deviation 42.3 RDW Coeff of David 12.4 Plt Count 195 MPV 10.0 Immature Gran % (Auto) 0.3 Neut % (Auto) 62.8 Lymph % (Auto) 25.1 [place] % (Auto) 11.4 Eos % (Auto) 0.3 Baso % (Auto) 0.1 Immature Gran # (Auto) 0.02 Neut # (Auto) 4.97 Lymph # (Auto) 1.98 [place] # (Auto) 0.90 H Eos # (Auto) 0.02 Baso # (Auto) 0.01 Sodium 143 Potassium 3.5 Chloride 114 H Carbon Dioxide 25 Anion Gap 4.0 BUN 12 Creatinine 0.86 Est Cr Clr Drug Dosing 66.1 Est GFR ( Amer) 82.2 Est GFR (Non-Af Amer) 70.9 BUN/Creatinine Ratio 14.5 Glucose 86 Calcium 7.9 L Total Bilirubin 0.4 Direct Bilirubin 0.1 AST 50 H ALT 217 H Alkaline Phosphatase 185 H Total Protein 5.8 L Albumin 3.0 L Lipase 78 Diagnostic Findings abd x-rays - my reading - constipation/copious stool; biliary stent RUQ (1) Hypertension Hypertension type: essential hypertension Qualified Code(s): I10 - Essential (primary) hypertension (2) Hyperlipidemia Hyperlipidemia type: mixed hyperlipidemia Qualified Code(s): E78.2 - Mixed hyperlipidemia (3) Constipation Constipation type: other constipation type Qualified Code(s): K59.09 - Other constipation
[2018-05-26] MEDS: ACETAMINOPHEN 325 MG TAB PO PRN (05:39)
[2018-05-26 06:28] LABS: Albumin Level 3.2 gm/dl (3.4-5.0); BUN Creatinine Ratio 11.9 (10-20); Calcium 8.4 mg/dl (8.5-10.1); Creatinine Clr Calc Pharmacy 53.6 ml/min; Est GFR (African American) 63.8; Est GFR (Non-African American) 55.1; Potassium 3.8 mmol/L (3.5-5.1)
[2018-05-26 06:30] LABS: Bilirubin,Total 0.3 mg/dl (0.2-1); Globulin 3.1 gm/dl (2.5-4.0); Total Protein 6.3 gm/dl (6.4-8.2)
[2018-05-26] MEDS: DICYCLOMINE HCL 10 MG CAP PO SCH (08:15)
[2018-05-26] MEDS: dilTIAZem HCL 180 MG CAPCR PO SCH (08:15)
[2018-05-26] MEDS: POLYETHYLENE (MIRALAX) 17 GM PACK PO SCH (08:15)
[2018-05-26] MEDS: SUCRALFATE 1 GM/10 ML UDC PO SCH ×2 (08:15→11:45)
--- NOTE | 2018-05-26 13:59 | Gastroenterology Progress Note ---
Date of Service May 26, 2018 Assessment & Plan (1) Choledocholithiasis: Ms. Corey Harris is a post procedure day #3 from ERCP for choledocholithiasis. A stent was placed and LFTs have improved. Now with brief cramping upper abdomen pain after drinking/eating and costocondritis. She denies GERD related symptoms. No nausea, vomiting, black/bloody stools/emesis. - Can increase Bentyl, TID - Diet as tolerated - Consider PPI 20 mg daily x 1 month - No contraindication to discharge home - OP ERCP in 4 weeks Thank you for allowing us to participate in the care of this patient. Please call with any acute changes, questions or concerns. Please see addendum below with additional recommendation from my supervising physician. Supervising Physician Co-Signing Physician Notes Late entry: Patient was seen and examined on 05/26 with ANNY Hooper whose note reflects our findings and plan. Subjective GI asked to re-[place]. Upper abd cramping after PO. No associated nausea, vomiting. Explains as an intermittent cramping. Family at bedside who notes symptoms have been more chronic. Denies abd pain but is having sternal pain and left sided rib pain. Gastrointestinal: as per Subjective / HPI, + abdominal pain (intermittent upper abdomen cramping, worse after drinking clear liquids), + bloating, + early satiety and + nausea Musculoskeletal: + back pain; no neck pain Psychiatric: + change in appetite; no hopelessness and no suicidal ideation Physical Exam Vital Signs (Past 24 Hours): Last Vital Signs Temp 36.6 C 05/26/18 07:33 Pulse 79 05/26/18 07:33 Resp 20 05/26/18 07:33 BP 147/80 H 05/26/18 07:33 Pulse Ox 92 05/26/18 07:33 Constitutional: well nourished, cooperative and comfortable; no acute distress Respiratory: normal respiratory effort, lungs clear to auscultation Cardiovascular: Rate/Rhythm: regular rate and regular rhythm Gastrointestinal (Abdomen): normal bowel sounds, soft, nontender, no hepatosp lenomegaly Skin: no rashes, warm and dry Results & Data Laboratory Results 05/26/18 Range/Units 05:39 Sodium 142 (136-145) mmol/L Potassium 3.8 (3.5-5.1) mmol/L Chloride 112 H (98-107) mmol/L Carbon Dioxide 25 (21-32) mmol/L Anion Gap 5.0 (3-11) BUN 13 (7-18) mg/dl Creatinine 1.06 (0.6-1.2) mg/dl Est Cr Clr Drug Dosing 53.6 ml/min Est GFR ( Amer) 63.8 Est GFR (Non-Af Amer) 55.1 BUN/Creatinine Ratio 11.9 (10-20) Glucose 92 (70-99) mg/dl Calcium 8.4 L (8.5-10.1) mg/dl Total Bilirubin 0.3 (0.2-1) mg/dl AST 24 (15-37) U/L ALT 162 H (12-78) U/L Alkaline Phosphatase 190 H (45-117) U/L Total Protein 6.3 L (6.4-8.2) gm/dl Albumin 3.2 L (3.4-5.0) gm/dl Globulin 3.1 (2.5-4.0) gm/dl Albumin/Globulin Ratio 1.0 (0.9-2)
[2018-05-26] MEDS ORDERED: DICYCLOMINE HCL 10 MG CAP PO SCH (14:00)
[2018-05-26] MEDS ORDERED: DICLOFENAC SOD 1% GEL 100 GM TUBE EXT SCH (14:20)
[2018-05-27] MEDS ORDERED: PANTOprazole 40 MG TAB PO SCH (09:00)
--- NOTE | 2018-06-04 21:38 | Discharge Summary ---
Date of Service date of admission - May 22, 2018 date of discharge - May 26, 2018 Admission HPI Per Admitting Provider 67yo female with history of cholecystectomy and HTN who presents with epigastric and LUQ pain. Patient reports the pain came on suddenly at approximately noon on day of admission. She bent over, and when she stood up, she experienced a sharp, 10/10 epigastric pain that radiated up to her left jaw and down to her umbilicus. The pain up to the neck faded quickly, but she reports the pain is still present in the epigastric area. She attempted to take Tums and Maalox without relief and came to the ED. She also reports shortness of breath that accompanied the pain along with wheezing. She denies any fevers, chills, diaphoresis, nausea, vomiting, cough, diarrhea, constipation, or dysuria. She reports this pain is very similar to her prior gallbladder pain when she had a cholecystectomy with Dr. Funes. Principal Diagnosis choledocholithiasis s/p ERCP Discharge Exam Constitutional well developed, well nourished and + obese; no acute distress ENMT external ear and nose normal, oropharynx normal Respiratory normal respiratory effort, lungs clear to auscultation Cardiovascular Rate/Rhythm: regular rate and regular rhythm Heart Sounds: normal S1 and normal S2; no murmur Vessels: posterior tibial pulses present and dorsalis pedis pulses present; no JVD Extremities: no edema Chest (Breasts) Additional Comments: tenderness to palpation along sternal-costal junction Gastrointestinal (Abdomen) Inspection/Auscultation: + abdomen distended (scant) and normal bowel sounds Percussion/Palpation: + abdomen tender (high epigastric region); no hepatosplenomegaly Skin no rashes, warm and dry Psychiatric A+Ox3, euthymic affect Discharge Data Allergies Allergy/AdvReac Type Severity Reaction Status Date / Time codeine AdvReac Unknown GI UPSET Verified 05/22/18 13:32 oxycodone AdvReac Unknown SICK Verified 05/22/18 13:32 Consultations [facility] - Maurilio Dc DO Procedures Performed 05/23/18 - Endoscopic Retrograde Cholangiopancreatography, sphincterotomy, stricture dilatation, biliary stent placement - Maurilio Dc DO Ordered Studies 1. abdominal u/s - IMPRESSION: 1. Limited study secondary to patient body habitus and obscuring bowel gas. 2. Prior cholecystectomy. 3. Possible mild hepatic steatosis. 2. CT abd/pelvis - IMPRESSION: 1. Prior cholecystectomy. Mild dilation of the common bile duct is likely postsurgical. Mild associated pneumobilia suggests prior sphincterotomy. 2. No bowel obstruction or focal bowel wall thickening. 3. Mild colonic diverticulosis without acute diverticulitis. 3. MRCP - IMPRESSION: 1. Motion degraded exam. 2. Cholecystectomy with mild intrahepatic and extrahepatic biliary ductal dilation. Pneumobilia is better appreciated on CT study of same day. 3. Findings are suspicious for choledocholithiasis about the distal common bile duct. Hospital Course (1) Choledocholithiasis: The patient's presenting symptoms (biliary colic), elevated LFTs. and MRCP findings were all suspicious for choledocholithiasis. She was seen in consult by [facility], and Dr. Maurilio Dc performed ERCP with sphincterotomy, stone extraction (at least partial removal of an impacted stone by report), and CBD stent deployment. She was noted to have a biliary stricture during the ERCP in addition to the impacted stone. She did not have clinical evidence of cholangitis during the stay. Following the ERCP her LFTs improved daily. She did continue to have epigastric discomfort post-ERCP, however, but fortunately her lipase remained normal ruling out post-ERCP pancreatitis. Her post-ERCP epigastric discomfort was thought to be multifactorial including some biliary colic, possible gastritis, spasm, and also constipation as abdominal x-rays showed copious stool. She was advised to take a PPI for 2 weeks, remain on miralax for bowel maintenance, and use bentyl on PRN basis. Low fat diet was recommended for a minimum of 2 weeks if not longer. She will be set up for a repeat outpatient ERCP in 1 month for stent retrieval at [facility]. Prior to discharge, despite the epigastric discomfort, she was consuming 100% of her meals without nausea or emesis. (2) Elevated liver function tests: See above in "choledocholithiasis" LFTs improved daily during the stay. She should have repeat LFTs as an outpatient to ensure normalization. (3) Biliary stricture: Noted on ERCP s/p CBD stent. (4) Epigastric abdominal pain: See above in "choledocholithiasis". (5) Hypertension: Controlled during the stay with ARB monotherapy. (6) Hyperlipidemia: Statin was held due to abnormal LFTs and she was advised to continue holding such post-discharge until her LFTs were completely normalized. (7) Constipation: Improved/resolved prior to discharge. Continue bowel regimen with miralax. Total Time Total Time Spent Total Time Spent (In Minutes): 50 Total Time Includes: Examination of the Patient, Discharge Planning, Medication Reconciliation and Communication With Other Providers Discharge Plan Discharge Items Patient Disposition: Home - Self-Care Reason For Visit: ABDOMINAL PAIN Discharge Diagnosis: abdominal pain due to common bile duct stone causing obstruction (blockage) with placement of stent by Dr. Dc Discharge Goals: Decrease discomfort, Diagnostic testing and Therapeutic intervention Activity: As commented below Activity Comment: no heavy exertional activities; no heavy lifting over 20 pounds Bathing: No limitations Exercise/Sports: Wait until after follow-up appointment Driving/Machine Use: No limitations Non-emergency contact: Primary Care Provider and Ict Analyst Call non-emergency contact if: you have any medication questions, your symptoms worsen, your pain is not controlled, your pain is worsening, your pain is unusual for you, your pain is concerning for you and your temperature is above 100.5 Follow-up/Referrals: Carlos Little MD [Primary Care Provider] - 06/02/18 2:30 pm (Please, follow up with Dr. Little on ThursdayJune 02 at 2:30 pm. *If you need to change this appointment, call the office at [phone].) Maurilio Dc [Physician] - (Dr Dc's office to call and schedule follow-up along with repeat ERCP procedure) Diet: Low Fat Addtl Provider Instructions: From Devang Champagne - hospitalist - You were treated for gallstones that were lodged in the common bile duct. Dr. Mario Dc performed ERCP procedure - he placed a stent, dilated the opening to the duct, and attempted to remove the stuck stone. Your liver function tests were high due to the blocked bile duct and following the ERCP the liver tests improved nicely. You had abdominal pain over the last 1-2 days of your stay -- likely combination of reflux, constipation, and possibly due to bile. You also had chest wall pain - we call this "costochondritis." At this time we recommend - 1. pantoprazole 40mg once daily for 14 days. 2. carafate 1gm before meals/bedtime x 7 days. 3. miralax [id number] 1 serving daily for constipation. 4. dicyclomine 10mg every 8 hours as needed for stomach cramps/bloating/discomfort. 5. voltaren gel - 4 gm to the chest wall every 6 hours as needed for pain. 6. heating pad to chest wall as needed/desired. AVOID TYLENOL. AVOID ALCOHOL. AVOID YOUR CRESTOR CHOLESTEROL MEDICATION FOR NOW. AVOID ASPIRIN, ASPIRIN-CONTAINING PRODUCTS, MOTRIN, IBUPROFEN, ETC FOR 3 MORE DAYS. AFTER 3 DAYS OK TO USE MOTRIN SPARINGLY FOR ACHES/PAINS. LOW FAT DIET FOR AT LEAST 7-10 DAYS IF NOT LONGER. Follow-up - see separate section. Return to [facility] if - 1. you have fever over 100.5 degrees 2. you have worsening abdominal pain 3. you have vomiting 4. you have yellowing of the eyes 5. you are unable to eat/drink Any other concerns Prescriptions: New pantoprazole 40 mg Tablet,Delayed Release (Dr/Ec) 40 mg PO QAM 14 Days Qty: 14 RF: 0 dicyclomine 10 mg Capsule 10 mg PO TID PRN (Reason: abdominal cramps, bloating, discomfort) Qty: 30 RF: 0 diclofenac sodium [Voltaren] 1 % Gel 1 applic EXT QID Qty: 1 RF: 0 polyethylene glycol 3350 [Miralax] 17 gram powder in packet 17 gm PO DAILY Qty: 30 RF: 0 Continued diltiazem HCl [Cartia XT] 180 mg capsule,extended release 24hr 360 mg PO DAILY RF: 0 hydrochlorothiazide 25 mg tablet 25 mg PO DAILY RF: 0 losartan 100 mg tablet 100 mg PO DAILY RF: 0 Discontinued rosuvastatin 20 mg tablet 20 mg PO HS RF: 0 Stand-Alone Forms: [facility] Discharge Orders: Discharge Order (Routine); Ordered 05/26/18 Ordered By: Devang Champagne Admission Data Admit Date/Time: 05/25/18 22:30 Attending Provider: Devang Champagne Admit Provider: Bean Eduardo Primary Care Provider: Carlos Little Other Providers: Maurilio Dc Service: Medical Other Interventions: Discharge Summary Assessment (RN) Last Done: 05/26/18 16:55 Pending Studies at Discharge: No DC Date/Time DO NOT enter until pt leaves facility: 05/26/18 16:50
== END 2018-05-26 16:50 | disposition home or self-care (01) | DRG 446 ==
LOC: ED 12:36 → 4W 12:36 → SUATTDRO 18:40 → 4W 19:12
DX: E66.3 Overweight; K21.9 Gastro-esophageal reflux disease without esophagitis; K80.51 Calculus of bile duct without cholangitis or cholecystitis with obstruction; Z90.49 Acquired absence of other specified parts of digestive tract; K58.1 Irritable bowel syndrome with constipation; R79.89 Other specified abnormal findings of blood chemistry; Z79.899 Other long term (current) drug therapy; R10.13 Epigastric pain; I10 Essential (primary) hypertension; Z88.5 Allergy status to narcotic agent; Z68.32 Body mass index [BMI] 32.0-32.9, adult; K22.4 Dyskinesia of esophagus; J45.909 Unspecified asthma, uncomplicated; E78.5 Hyperlipidemia, unspecified